=== PATIENT | male | born 1970 | race Caucasian/White ===

== ENCOUNTER → 2017-10-30 | Outpatient (CLI) | payer BC | END | disposition home or self-care (01) | LOC: KCIC US 11:14 | DX: R22.31 Localized swelling, mass and lump, right upper limb (principal) | CPT/HCPCS: 73130; 76881 ==

== ENCOUNTER → 2021-02-26 | Outpatient (CLI) | payer BC, OTHER ==
--- NOTE | 2021-02-26 11:54 | KCIC ---
PROCEDURE: CT CALCIUM SCORE MD ORDERED COMPARISON: None. INDICATIONS: CT SCREENING FOR CORONARY ARTERY REPORTED RISK FACTORS: Family hx. heart disease, hypertension. TECHNIQUE: Low-dose prospectively gated CT images of the heart were obtained and quantitative analys is of coronary artery calcification was performed. Comparison was made to a patient database of [facility] age and gender. One or more of the following individualized dose reduction techniques were utilized for this study: 1. ? Automated exposure control. 2. ? Adjustment of the mA and/or kV according to patient size. 3. ? Use of iterative reconstruction technique. BACKGROUND: Coronary artery calcification is a direct marker for coronary atherosclerosis. A coronar y artery calcium scan is a low dose CT scan which sums all visible calcium in the coronary tree to pr ovide each patient with a coronary artery calcium score (CACS). As the calcium score increases, so d oes future cardiovascular risk. The calcium score is superior to traditional risk factors for risk s tratification and permits more effective prevention strategies and tailored medical therapy. CALCIUM SCORE: Left main: 0 LAD: 0 LCX: 0 RCA: 0 Total Agatston Score: 0 Percentile (%) for age and gender: 0 OTHER OBSERVATIONS: None. GUIDELINES BASED ON SCORE OF ZERO, WITH RISK FACTORS: Moderate risk. <1% annualized risk of myocardial infarction or cardiac . Symptomatic patients with calcium score of zero may have non-calcified plaque and require further marita luation. Recommend risk factor modification. LDL target <130 mg/dl. Retest in five years. References: 1. ACCF/AHA 2007 Clinical Expert Consensus Document on Coronary Artery Calcium Scoring by Computed T omography in Global Cardiovascular Risk Assessment and in Evaluation of Patients with Chest Pain Cir culation, 2007, 115:402-426 2. Katrina et al. The [facility] Heart Study, J Am Mady Cardiol, 2005, 46:158-65 3. Gina M et al. Executive Summary of the Screening for Heart Attack Prevention and Eradication(S HAPE), Task Force Report, Am J Card, 2006, 98:2-15 4. Expert Panel on Detection, Evaluation, and Treatment of High Blood Cholesterol in Adults. 2000. E xecutive Summary of the Third Report of evaluation and treatment of high blood cholesterol in adults (Adult Treatment Panel III). SAY, [id number]:[id number] Electronically signed by: Mehul Barker MD (02/26/2021 11:52 AM) [id number]
== END ==
LOC: KCIC CT 09:03
PROVIDERS: ATTEND Family Medicine
DX: Z13.6 Encounter for screening for cardiovascular disorders (principal); I10 Essential (primary) hypertension; I51.9 Heart disease, unspecified
CPT/HCPCS: 75571